=== PATIENT | female | born 1985 | race Caucasian/White ===

== ENCOUNTER 2020-01-27 00:35 | Emergency (ER) | payer MEDICAID ==
[~2020-01-27] VITALS: Ht 167.6 cm; Wt 90.0 kg
[2020-01-27 00:43] VITALS: Ht 167.6 cm; Wt 90.0 kg
[2020-01-27 02:24] VITALS: BP 125/64
== END 2020-01-27 02:24 | disposition home or self-care (01) ==
LOC: ED 00:35
DX: G51.0 Bell's palsy (principal); Z88.6 Allergy status to analgesic agent